=== PATIENT | male | born 1970 | race Caucasian/White ===

== ENCOUNTER 2019-06-24 17:32 | Emergency (ER) | payer OTHER ==
[2019-06-24] MEDS: DIPHTH/TET/ACEL PERTUSS (ADULT) 0.5 ML VIAL IM* (18:54)
== END 2019-06-24 20:17 | disposition home or self-care (01) ==
LOC: E/R 17:32
DX: S01.01XA Laceration without foreign body of scalp, initial encounter (principal); S09.90XA Unspecified injury of head, initial encounter; R40.2412 Glasgow coma scale score 13-15, at arrival to emergency department; W22.8XXA Striking against or struck by other objects, initial encounter; Y92.830 Public park as the place of occurrence of the external cause; Z23 Encounter for immunization
CPT/HCPCS: 12002; 90471; 90715; 99283-25